=== PATIENT | male | born 1960 | race Caucasian/White ===

== ENCOUNTER 2024-07-23 20:23 | Emergency (ER) | payer OTHER, SELFPAY ==
[2024-07-23] VITALS (11 sets, daily range): BP systolic 136–176; BP diastolic 76–92; PULSE 52–74; RESP 18; TEMP 36.5; O2SAT 97–99; BMI 27.1
[2024-07-23 21:03] LABS: COVID19 -Nasal RAPID Negative (Negative)
[2024-07-23] MEDS: MECLIZINE HCL 12.5 MG TABLET 25 MG PO (21:04)
--- NOTE | 2024-07-23 21:42 | ED.GENADULT ---
HPI - General Adult General Chief complaint: Dizziness Stated complaint: cannot stand, really ill Time Seen by Provider: 07/23/24 20:54 Source: patient Mode of arrival: Wheelchair History of Present Illness HPI narrative: Patient is a 64-year-old male. Has had occasional episodes vertigo since he was diagnosed with meningitis a couple years ago. He was here for evaluation of a couple days of room spinning sensation. No headache. Does have a slight sore throat. No sinus congestion. No ear pain. He was ringing in his ears but this is baseline for him. No chest pain or palpitations. States he does have periods of time where when he changes the position of his head he becomes very sick with room spinning. No numbness or tingling in his upper and lower extremities. Has not tried anything for symptoms prior to arrival. Related Data Home Medications Medication Instructions Recorded Confirmed losartan 50 mg tablet 50 mg PO QDAY ##0 05/26/17 Previous Rx's Medication Instructions Recorded oxycodone 5 mg tablet 1 - 4 tab PO Q3HP PRN #90 tabs 05/27/17 meclizine 25 mg tablet 25 mg PO TID PRN vertigo #20 tabs 07/24/24 Allergies Allergy/AdvReac Type Severity Reaction Status Date / Time amoxicillin [AMOXICILLIN] Allergy Unknown Unverified 02/17/18 12:45 Review of Systems Review of Systems ROS Unobtainable: All systems reviewed & are unremarkable except as noted in HPI and below Patient History Social History Smoking Status: Never smoker Smoking Status: Never smoker alcohol intake frequency: 0-2 drinks per day Substance Use Type: does not use Exam Initial Vital Signs Initial Vital Signs: Vital Signs Pulse Rate 70 07/23/24 20:29 Pulse Oximetry 98 07/23/24 20:29 Const General: cooperative, comfortable and No ill appearing HENMT Head: normal to inspection and normocephalic Ears: TM's normal bilaterally Face and sinus: normal facial exam Eyes Pupils: PERRL EOM: EOM intact bilaterally Resp Effort & Inspection: normal respiratory effort Auscultation: clear to auscultation bilaterally Cardio Rate: regular rate Rhythm: regular rhythm Skin General: no rashes or lesions noted Neuro General: patient alert, patient awake, patient oriented x3 and moves all extremities Cranial Nerves: CN's II-XI intact bilaterally Cognition: normal cognition Speech: speech normal Gait: normal gait Sensory Exam: no sensory deficits noted Extrem General: capillary refill normal Course Orders Ordered: ED Orders 07/23/24 20:39 Basic Metabolic Panel Stat Complete Blood Count AUTO DIFF Stat 07/23/24 20:42 COVID19 -Nasal RAPID Stat Discontinued Medications Diazepam (Diazepam 10 Mg/2 Ml Syringe) 2 mg IV NOW ONE Stop: 07/23/24 21:43 Last Admin: 07/23/24 21:47 Dose: 2 mg Documented By: PHILLY Sodium Chloride (Normal Saline 0.9%) 1,000 mls @ 1,000 mls/hr IV BOLUS ONE Stop: 07/23/24 22:41 Last Infusion: 07/23/24 23:03 Dose: Infused Documented By: Admin: 07/23/24 21:47 Dose: 1,000 mls/hr Documented By: PHILLY Meclizine HCl (Meclizine Hcl 12.5 Mg Tablet) 25 mg PO NOW ONE Stop: 07/23/24 20:56 Last Admin: 07/23/24 21:04 Dose: 25 mg Documented By: BRYAN Vital Signs Vital signs: Vital Signs - 8 hr 07/23/24 20:29 07/23/24 20:30 07/23/24 20:30 Temperature Pulse Rate 70 63 Respiratory Rate Blood Pressure 174/92 H Pulse Oximetry 98 97 Oxygen Delivery Method 07/23/24 20:32 07/23/24 21:00 07/23/24 21:01 Temperature 97.7 F Pulse Rate 64 65 Respiratory Rate 18 Blood Pressure 174/92 H 154/76 H Pulse Oximetry 99 98 Oxygen Delivery Method Room Air 07/23/24 21:01 07/23/24 21:30 07/23/24 21:30 Temperature Pulse Rate 64 73 Respiratory Rate 18 Blood Pressure 142/76 H Pulse Oximetry 97 97 Oxygen Delivery Method 07/23/24 22:00 07/23/24 22:00 07/23/24 22:30 Temperature Pulse Rate 74 Respiratory Rate 18 Blood Pressure 136/79 143/82 H Pulse Oximetry 98 Oxygen Delivery Method 07/23/24 22:30 07/23/24 23:00 07/23/24 23:01 Temperature Pulse Rate 74 64 Respiratory Rate Blood Pressure 176/83 H Pulse Oximetry 98 98 Oxygen Delivery Method 07/23/24 23:01 07/23/24 23:31 07/23/24 23:31 Temperature Pulse Rate 61 52 L Respiratory Rate 18 Blood Pressure 143/80 H Pulse Oximetry 98 97 Oxygen Delivery Method 07/24/24 00:00 07/24/24 00:00 07/24/24 01:00 Temperature Pulse Rate 67 63 Respiratory Rate 18 15 Blood Pressure 148/84 H 159/85 H Pulse Oximetry 99 96 Oxygen Delivery Method Room Air Medical Decision Making Lab Data Lab results reviewed: Yes I reviewed the patient's lab results. 07/23/24 20:39 07/23/24 20:39 Labs: Lab Results 07/23/24 07/23/24 Range/Units 20:39 20:42 WBC 13.0 H (4.5-11.0) X10^3/uL RBC 5.49 (4.5-5.9) X10^6/uL Hgb 16.2 (13.5-17.5) g/dL Hct 48.1 (41-53) % MCV 87.7 (80-100) fL MCH 29.5 (26-34) PG MCHC 33.7 (30-36) % RDW 13.0 (11.6-14.8) % Plt Count 285 (150-400) X10^3/uL Neut % (Auto) 83.6 H (50-75) % Lymph % (Auto) 10.4 L (25-40) % [place] % (Auto) 5.4 (3-14) % Eos % (Auto) 0.1 L (2-4) % Baso % (Auto) 0.5 (0-2) % Neut # (Auto) 54683 H (5936-0229) /uL Lymph # (Auto) 1400 (7083-9346) /uL [place] # (Auto) 700 (0-900) /uL Eos # (Auto) 0 (0-450) /uL Baso # (Auto) 100 (0-100) /uL Sodium 135 L (137-145) mmol/L Potassium 3.9 (3.4-5.1) mmol/L Chloride 102 (98-107) mmol/L Carbon Dioxide 27 (22-32) mmol/L BUN 19 (9-20) mg/dL Creatinine 0.79 (0.66-1.25) mg/dL Estimated GFR > 60 (>60) mL/min BUN/Creatinine Ratio 24.1 H (6-22) Glucose 117 H (80-110) mg/dL Calcium 9.4 (8.4-10.2) mg/dL SARS-CoV-2 (PCR) Negative (Negative) MDM Narrative Medical decision making narrative: Patient does have a very positional nature to his vertigo. His whenever he turns his head either to the left than the right. He does have a positive Madhav-Hallpike. Otherwise has a normal neurologic exam. No fevers. After medications here in the ER he was ambulatory. Recommended that he contact his primary doctor when he returns home to discuss the indications for referral to see ear nose and throat. I do suspect that this is a peripheral vertigo. Low suspicion for meningitis. He was given return precautions. He expressed understanding and agreement with the plan. Discharge Plan Departure Patient Disposition: Home Clinical Impression: Vertigo Instructions: DI for Vertigo Activity Restrictions/Additional Instructions: I do recommend that you contact your primary doctor when you return home to discuss the indications for referral to see ENT. Also recommend that you perform the Ozzy maneuver. You can look this up online. Return to the emergency department for new or worsening symptoms. Prescriptions: New meclizine 25 mg tablet 25 mg PO TID PRN (Reason: vertigo) Qty: 20 0RF No Action losartan 50 MG tablet 50 mg PO QDAY Qty: 0 oxycodone 5 MG tablet 1 - 4 tab PO Q3HP PRNQty: 90 0RF Stand Alone Forms: Patient Portal/API
[2024-07-23] MEDS: diazePAM 10 MG/2 ML SYRINGE 2 MG IV (21:47)
[2024-07-23] MEDS: SODIUM CHLORIDE 0.9% 1,000 ML 1000 ML IV (21:47)
[2024-07-23 21:54] LABS: BUN Creatinine Ratio 24.1 (6-22); Blood Urea Nitrogen 19 mg/dL (9-20); Calcium 9.4 mg/dL (8.4-10.2); Carbon Dioxide 27 mmol/L (22-32); Chloride 102 mmol/L (98-107); Estimated Glomerular Filt Rate > 60 mL/min (>60); Glucose 117 mg/dL (80-110); HEMOLYSIS < 15 (0-50); Potassium 3.9 mmol/L (3.4-5.1); Sodium 135 mmol/L (137-145)
[2024-07-23 22:05] LABS: Add Manual Diff / Slide Review NO; Basophils Absolute Auto 100 /uL (0-100); Basophils Percent Auto 0.5 % (0-2); Eosinophils Absolute Auto 0 /uL (0-450); Eosinophils Percent Auto 0.1 % (2-4); Hematocrit 48.1 % (41-53); Hemoglobin 16.2 g/dL (13.5-17.5); Lymphocytes Absolute Auto 1400 /uL (1100-4500); Lymphocytes Percent Auto 10.4 % (25-40); Mean Corpuscular HGB Conc 33.7 % (30-36); Mean Corpuscular Hemoglobin 29.5 PG (26-34); Mean Corpuscular Volume 87.7 fL (80-100); Monocytes Absolute Auto 700 /uL (0-900); Monocytes Percent Auto 5.4 % (3-14); Neutrophils Absolute Auto 10800 /uL (1500-7000); Neutrophils Percent Auto 83.6 % (50-75); Platelet Count 285 X10^3/uL (150-400); Red Blood Cell Count 5.49 X10^6/uL (4.5-5.9)
[2024-07-24] VITALS: BP 148/84; PULSE 67; RESP 18; O2SAT 99
[2024-07-24 01:00] VITALS: BP 159/85; PULSE 63; RESP 15; O2SAT 96
== END 2024-07-24 01:01 | disposition home or self-care (01) ==
PROVIDERS: Emergency Provider Emergency Medicine
DX: R42 Dizziness and giddiness (principal); Z11.52 Encounter for screening for COVID-19
CPT/HCPCS: 80048; 85025; 87635; 96361; 96374; 99284; J3360